=== PATIENT | female | born 1975 | race Caucasian/White ===

== ENCOUNTER → 2017-12-29 | Outpatient (CLI) | payer BC ==
--- NOTE | 2017-12-29 23:35 | MR ---
EXAMINATION TYPE: MR shoulder LT wo con DATE OF EXAM: 12/29/2017 COMPARISON: NONE HISTORY: Left Shoulder pain with Limited ROM Since 09/2017 TECHNIQUE: Multiplanar, multisequence imaging of the left shoulder is performed without contrast. FINDINGS: There is a small amount of fluid around the biceps tendon. Biceps tendon is intact. Subscapularis ten don appears intact. There is slight thickening of the supraspinatus tendon. There is no retraction. T here is no subacromial impingement. Glenohumeral joint appears intact. The glenoid momo appear archana l. IMPRESSION: Slight thickening of the supraspinatus tendon consistent with mild tendinitis. No evidence of a full- thickness tear.
== END | disposition home or self-care (01) ==
LOC: RADMRIMAIN 19:48
PROVIDERS: ATTEND Family Medicine
DX: R93.7 Abnormal findings on diagnostic imaging of other parts of musculoskeletal system (principal); M25.512 Pain in left shoulder; S49.92XA Unspecified injury of left shoulder and upper arm, initial encounter

== ENCOUNTER → 2018-02-09 | Outpatient (CLI) | payer BC ==
--- NOTE | 2018-02-13 13:14 | MM ---
Reason for exam: screening (asymptomatic). Last mammogram was performed 1 year and 2 months ago. History: Patient is postmenopausal. Took hormonal contraceptives for 20 years. Taking estrogen for 1 year. Physical Findings: A clinical breast exam by your physician is recommended on an annual basis and results should be correlated with mammographic findings. MG 3D Screening Mammo W/Cad Bilateral CC and MLO view(s) were taken. Prior study comparison: December 10, 2016, mammogram, performed at [facility]. October 31, 2015, mammogram, performed at [facility]. The breast tissue is extremely dense which could obscure a lesion on mammography. There are benign appearing round, oval, circumscribed masses waxing and waning over multiple priors, mammographically most compatible with cysts. Benign appearing bilateral calcifications. No suspicious abnormality. ASSESSMENT: Benign, BI-RAD 2 RECOMMENDATION: Routine screening mammogram of both breasts in 1 year.
== END | disposition home or self-care (01) ==
LOC: RADMAMWWP 14:49
PROVIDERS: ATTEND Family Medicine
DX: Z12.31 Encounter for screening mammogram for malignant neoplasm of breast (principal)
CPT/HCPCS: 77063; 77067

== ENCOUNTER → 2021-04-06 | Outpatient (CLI) | payer OTHER ==
--- NOTE | 2021-04-08 13:23 | MM ---
Reason for exam: screening (asymptomatic). Last mammogram was performed 3 years and 2 months ago. History: Patient is postmenopausal. Took hormonal contraceptives for 20 years. Took estrogen for 1 year. Physical Findings: A clinical breast exam by your physician is recommended on an annual basis and results should be correlated with mammographic findings. MG 3D Screening Mammo W/Cad Bilateral CC and MLO view(s) were taken. Prior study comparison: February 09, 2018, bilateral MG 3d screening mammo w/cad. December 10, 2016, mammogram, performed at [facility]. The breast tissue is heterogeneously dense. This may lower the sensitivity of mammography. Stable punctate calcifications. No significant changes when compared with prior studies. ASSESSMENT: Benign, BI-RAD 2 RECOMMENDATION: Routine screening mammogram of both breasts in 1 year.
== END | disposition home or self-care (01) ==
LOC: RADMAMWWP 08:53
PROVIDERS: ATTEND Family Medicine
DX: Z12.31 Encounter for screening mammogram for malignant neoplasm of breast (principal); Z78.0 Asymptomatic menopausal state; Z79.3 Long term (current) use of hormonal contraceptives
CPT/HCPCS: 77063; 77067